=== PATIENT | male | born 1960 | race Caucasian/White ===

== ENCOUNTER 2019-08-16 00:08 | Day surgery (SDC) | payer OTHER, SELFPAY ==
[2019-08-11 11:16] VITALS: BMI 27.1
--- NOTE | 2019-08-14 14:44 | WPDANESEPP ---
Anes - Eval Pre Procedure Procedure: Operation Date: 08/16/19 07:30 Proposed Procedures p Screening Colonoscopy - Jossue Freeman MD Date/Time: 08/14/19 14:44 Pre Op Diagnosis: Neoplasm Screening, Hx of Colon Polyp Patient Data Age: 59 Gender: M Height: 5 ft 10 in Weight: 86 kg Allergies Allergy/AdvReac Type Severity Reaction Status Date / Time No Known Allergies Allergy Unverified 08/11/19 11:09 Home Medications Medication Instructions Recorded Confirmed Type alprazolam 0.5 mg tablet 0.5 mg PO BID PRN #60 tablet 07/23/19 08/11/19 Rx aspirin [Aspir-81] 81 mg PO DAILY 08/11/19 08/11/19 History atorvastatin 20 mg PO DAILY 08/11/19 08/11/19 History hydrocodone 10 mg-acetaminophen 1 tablet PO Q6H PRN #120 tablet 08/13/19 Rx 325 mg tablet Patient hx anesthesia problems: none Family hx anesthesia problems: none PMFSH Past Medical History Medical History (Updated 08/14/19 @ 14:44 by Marry Johnson CRNA) Chronic pain syndrome Chronic use of opiate drug for therapeutic purpose Hypercholesterolemia Overweight (BMI 25.0-29.9) PVD (peripheral vascular disease) with claudication Left leg Surgical History Surgical History (Updated 08/14/19 @ 14:44 by Marry Johnson CRNA) S/P laminectomy with spinal fusion Cervical & Lumbar S/P peripheral artery angioplasty with stent placement left leg Family History Family History (Updated 10/29/18 @ 09:31 by DOCTOR UNKNOWN) Sibling Family history of diabetes mellitus in first degree relative Diabetes mellitus Patient's brother is in good health Mother Carcinoma of colon Patient's mother is Father Family history unknown Family history of malignant neoplasm Patient's father is Social History Social History (Updated 08/14/19 @ 14:44 by Marry Johnson CRNA) Smoking status: Heavy tobacco smoker Alcohol intake: never Substance use: current Substance use type: opiates Exam Day of Procedure 08/14/19 14:44
[2019-08-16 06:44] VITALS: BP 113/74; PULSE 91; RESP 16; TEMP 37.1; O2SAT 97
[2019-08-16] MEDS: LACTATED RINGERS 1,000 ML 150 ML IV CONT (06:49)
--- NOTE | 2019-08-16 07:00 | WPDANESEFPP ---
Anes - Eval Final PreProcedure Day of Procedure 08/16/19 07:00 Patient weight: normal Heart: regular rate and rhythm Lungs: clear to auscultation Airway: Mallampati scale Neurological: alert and oriented Last oral intake: >/= 8 hours ASA classification: III Anesthetic plan: proceed Anesthesia type and monitoring: general GIVS and standard monitoring Informed Consent: The patient's anesthetic plan and its attendant risks and benefits were discussed with the patient/family/POA. Questions were solicited and answers provided to the satisfaction of the patient/family/POA.
--- NOTE | 2019-08-16 07:30 | WPDGICN ---
Assessment and Plan Additional Plan This is a 59-year-old white male patient seen in evaluation at the request of Dr. Kelley Arevalo. Patient presents for screening colonoscopy. Patient's family history is significant that his mother had colon cancer. Patient's last colonoscopy 6 years ago revealed several benign polyps. These were felt to be hyperplastic. Patient states that his current weight appetite bowel movements are normal. He denies any blood in his stools. He denies any weight loss. He denies any abdominal pain. Family history is significant mother had colon cancer. Past medical history is significant for peripheral vascular disease. Hypercholesterolemia. Medications include alprazolam. Atorvastatin. Hydrocortisone. He has no stated drug allergies. Physical exam reveals him to be alert. Vital signs stable. HEENT exam unremarkable. Lungs are clear to auscultation and percussion. Heart is without murmur or extra sounds. Abdominal exam bowel sounds are present soft nontender with no organomegaly. Digital external rectal exam normal. Impression 1. Family history of colon cancer. Plan is for screening colonoscopy. GI Consult Note Consult date/time: 08/16/19 07:30 HPI: Howard Maciel is a 59 year old male [facility] Past Medical History Medical History (Updated 08/15/19 @ 19:32 by Ector Garcia DO) Chronic pain syndrome Chronic use of opiate drug for therapeutic purpose Hypercholesterolemia Overweight (BMI 25.0-29.9) PVD (peripheral vascular disease) with claudication Left leg Surgical History Surgical History (Updated 08/15/19 @ 19:32 by Ector Garcia DO) S/P laminectomy with spinal fusion Cervical & Lumbar S/P peripheral artery angioplasty with stent placement left leg Family History Family History (Updated 10/29/18 @ 09:31 by DOCTOR UNKNOWN) Sibling Family history of diabetes mellitus in first degree relative Diabetes mellitus Patient's brother is in good health Mother Carcinoma of colon Patient's mother is Father Family history unknown Family history of malignant neoplasm Patient's father is Social History Social History (Updated 08/14/19 @ 14:44 by Marry Johnson CRNA) Smoking status: Heavy tobacco smoker Alcohol intake: never Substance use: current Substance use type: opiates Meds Home Medications and Allergies Home Medications Medication Instructions Recorded Confirmed Type alprazolam 0.5 mg tablet 0.5 mg PO BID PRN #60 tablet 07/23/19 08/11/19 Rx aspirin [Aspir-81] 81 mg PO DAILY 08/11/19 08/11/19 History atorvastatin 20 mg PO DAILY 08/11/19 08/11/19 History hydrocodone 10 mg-acetaminophen 1 tablet PO Q6H PRN #120 tablet 08/13/19 08/16/19 Rx 325 mg tablet Allergies Allergy/AdvReac Type Severity Reaction Status Date / Time No Known Allergies Allergy Unverified 08/16/19 06:43 Vital Signs Vital Signs - 24 hr 08/16/19 06:44 Temperature 37.1 C Pulse Rate 91 Respiratory Rate 16 Blood Pressure 113/74 Pulse Oximetry 97
[2019-08-16] MEDS: SIMETHICONE ORAL SUSPENSION 20 MG/0.3 ML 30 ML BOTTLE 0.6 ML IRRIGATION (07:40)
[2019-08-16 07:50] VITALS: BP 89/55; PULSE 70; RESP 14; O2SAT 98
[2019-08-16 08:00] VITALS: BP 117/72; PULSE 68; RESP 18; O2SAT 99
[2019-08-16 08:10] VITALS: BP 124/82; PULSE 64; RESP 15; O2SAT 98
[2019-08-16 08:20] VITALS: BP 119/74; PULSE 67; RESP 14; O2SAT 100
== END 2019-08-16 08:53 | disposition home or self-care (01) ==
PROVIDERS: PCP Internal Medicine; Visit Provider Internal Medicine Gastroenterology
PROC: 0DJD8ZZ Inspection of Lower Intestinal Tract, Via Natural or Artificial Opening Endoscopic (ICD-10-PCS; CPT 45378; principal; 2019-08-16 07:30)
DX: Z12.11 Encounter for screening for malignant neoplasm of colon (principal); K63.5 Polyp of colon; K64.8 Other hemorrhoids; Z80.0 Family history of malignant neoplasm of digestive organs; E78.00 Pure hypercholesterolemia, unspecified; G89.4 Chronic pain syndrome; I70.212 Atherosclerosis of native arteries of extremities with intermittent claudication, left leg; Z79.891 Long term (current) use of opiate analgesic; Z98.1 Arthrodesis status; Z95.820 Peripheral vascular angioplasty status with implants and grafts; Z79.82 Long term (current) use of aspirin; F17.210 Nicotine dependence, cigarettes, uncomplicated
CPT/HCPCS: 45385; J2704; J7120

== ENCOUNTER 2020-09-11 10:39 | Outpatient (CLI) | payer OTHER, SELFPAY ==
--- NOTE | ~2020-09-11 | CT_ITS ---
EXAMINATION: CT lung screening DATE: 09/11/2020 11:01 INDICATION: Personal history of nicotine dependence, prior smoker with 30 pack year history TECHNIQUE: Computed tomography (CT) of the chest was performed without intravenous contrast. The dose -length product (DLP) was 94.58 mGy-cm. Automated exposure control and iterative reconstruction techn [employer] were employed. COMPARISON: None FINDINGS: There are a few scattered 1 to 2 mm nodules in the lungs. The lungs are free of focal airsp augusta opacities. There is no pleural effusion or pneumothorax. No pathologically enlarged thoracic lymp h nodes are identified. The heart size is normal. Calcified coronary artery atherosclerosis is noted. There are partially imaged changes of anterior fusion in the lower cervical spine. IMPRESSION: 1. Lung-RADS category 2: Benign appearance or behavior. Continue annual screening with noncontrast lo w-dose chest CT in 12 months. Reviewed, dictated and finalized at location A. TTANCE CLERK IMPRESSION: 1. Lung-RADS category 2: Benign appearance or behavior. Continue annual screeni ng with noncontrast low-dose chest CT in 12 months.
== END 2020-09-11 10:40 | disposition home or self-care (01) ==
PROVIDERS: PCP Internal Medicine; Visit Provider Nurse Practitioner
DX: Z12.2 Encounter for screening for malignant neoplasm of respiratory organs (principal); Z87.891 Personal history of nicotine dependence
CPT/HCPCS: 71271

== ENCOUNTER 2022-03-27 10:53 | Outpatient (CLI) | payer OTHER, SELFPAY | END 2022-03-27 10:54 | disposition home or self-care (01) | LOC: ANHAUDIO 10:54 | PROVIDERS: PCP Internal Medicine; Visit Provider Internal Medicine | DX: H91.90 Unspecified hearing loss, unspecified ear (principal) | CPT/HCPCS: 92557; 92567 ==

== ENCOUNTER 2024-06-17 14:53 | Outpatient (CLI) | payer BC, SELFPAY ==
--- NOTE | ~2024-06-17 | US_ITS ---
EXAMINATION: US soft tissue upper back DATE: 06/17/2024 15:30 INDICATION: Benign lipomatous neoplasm with 2 chronic palpable areas at the right shoulder and mid up per back TECHNIQUE: Multiple grayscale and Doppler ultrasound images of the regions of concern at the top of t he right shoulder and at the mid upper back were obtained. COMPARISON: None FINDINGS: The first palpable abnormality corresponds to a 1.8 x 1.4 x 0.7 cm nonspecific hypoechoic mass which demonstrates a neck extending to a potential deeper component which is obscured by shadowing bone whi ch given the described location likely represents the clavicle. The second lesion is a very hypoechoi c 11 x 8 x 9 mm lesion situated in the superficial subdermal tissues at. The lesion extends to within 1.5 mm skin surface. No evident internal vascular flow or surrounding hyperemia on color Doppler. Th ere is prominent posterior acoustic enhancement consistent with a complex cystic lesion most likely s ebaceous/epidermoid cyst. IMPRESSION: 1. 1.8 x 1.4 x 0.7 cm hypoechoic mass corresponding to the lesion at the cephalad aspect of the right shoulder which appears to extend to a possible deeper component obscured by what is likely the clavi keyon. This most likely represents a lipoma however imaging appearance is nonspecific and would conside r further evaluation with either MRI or CT. 2. 11 x 8 x 9 mm superficial complex cystic lesion corresponding to the lesion at the mid upper back with location and appearance most consistent with a sebaceous/epidermoid cyst. Reviewed, dictated and finalized at location A. IAL SERVICE REPRESENTATIVE IMPRESSION: 1. 1.8 x 1.4 x 0.7 cm hypoechoic mass corresponding to the lesion at the cephal ad aspect of the right shoulder which appears to extend to a possible deeper co mponent obscured by what is likely the clavicle. This most likely represents a lipoma however imaging appearance is nonspecific and would consider further daniela luation with either MRI or CT. 2. 11 x 8 x 9 mm superficial complex cystic lesion corresponding to the lesion at the mid upper back with location and appearance most consistent with a sebac eous/epidermoid cyst.
--- NOTE | ~2024-06-17 | CT_ITS ---
EXAMINATION: CT lung screening DATE: 06/17/2024 15:30 INDICATION: Z87.891 - Personal history of nicotine dependence TECHNIQUE: Computed tomography (CT) of the chest was performed without intravenous contrast. Addition al 3D reconstructions utilizing coronal maximum intensity projection (MIP) were performed. Automated exposure control and iterative reconstruction technique were employed. The dose-length product was 87 .72 mGy-cm. COMPARISON: None FINDINGS: Small calcified nodule along the right minor fissure consistent with old granulomatous disease. Elong ated 7 x 3 mm triangular likely intrafissural lymph node along the left major fissure. No other suspi cious pulmonary nodules, pneumonia, pulmonary edema or pleural effusion. Heart size normal. Small of atherosclerotic coronary artery calcific location. No pericardial effusion. Thoracic aorta is normal in caliber. No pathologically enlarged thoracic lymphadenopathy. Mild thoracic spondylosis. IMPRESSION: 1. Lung-RADS category 2: Benign appearance or behavior. Continue annual screening with noncontrast lo w-dose chest CT in 12 months. Reviewed, dictated and finalized at location A. D PIPELINES SUPERVISOR IMPRESSION: 1. Lung-RADS category 2: Benign appearance or behavior. Continue annual screeni ng with noncontrast low-dose chest CT in 12 months.
== END 2024-06-17 14:54 | disposition home or self-care (01) ==
PROVIDERS: PCP Family Medicine; Visit Provider Family Medicine
DX: Z12.2 Encounter for screening for malignant neoplasm of respiratory organs (principal); Z87.891 Personal history of nicotine dependence; D17.9 Benign lipomatous neoplasm, unspecified
CPT/HCPCS: 71271; 76604

== ENCOUNTER 2025-02-22 00:34 | Day surgery (SDC) | payer BC, SELFPAY ==
[2025-02-10 10:35] VITALS: BMI 26.9
--- NOTE | 2025-02-15 16:21 | PC.NURSE ---
Spoke with _patient_ regarding medication _cilostazol. Patient verbalizes understanding that the last dose is to be taken on02/18/2025 and the Endoscopist will instruct them when to restart after the procedure.
--- OUTSIDE RECORDS SUMMARY | 2025-02-22 00:38 | XMS_ITS | Clinical Summary ---
Author Organization [facility] Address [address] [place] [address] Care Team Providers Care Video Engineer Name Role Phone Ector Garcia DO Primary Care Provider [phone] Allergies No known active allergies Medications HYDROcodone-acet aminophen (NORCO) 10-325 mg per tablet TAKE 1 TABLET BY MOUTH EVERY SIX HOURS NEEDED FOR PAIN; 09/17/2019 Active atorvastatin (LIPITOR) 20 mg tablet Take 20 mg by mouth daily 09/28/2019 Active ALPRAZolam (XANAX) 0.5 mg tablet TAKE ONE TABLET TWICE DAILY NEEDED 09/28/2019 Active gabapentin (NEURONTIN) 300 mg capsule Take 300 mg by mouth daily 09/16/2019 Active Active Problems Problem Noted Date Diagnosed Date HNP (herniated nucleus pulposus), lumbar 020 Assessment & Plan (03/15/2020 3:08 PM CDT): Assessment: Healed anterior lumbar fusion L4-5 Left L3-4 foraminal disc protrusion L5-S1 disc space narrowing and left foraminal narrowing Plan: Recommended treatment would be a left L5-S1 transforaminal epidural steroid injection and a follow-up call or visit. We will try this injection at the L5-S1 level to see if he gets any symptomatic benefit. He did not receive any benefit from the left L3-4 transforaminal epidural steroid injection. I would like to perform an injection at the L5-S1 level to determine if this is his pain generator. If he does not get any temporary or long-term relief he is to give the office a call and I can order an MRI of the lumbar spine with and without contrast and have him follow up for further evaluation and treatment. Assessment & Plan (10/06/2019 10:51 AM CDT): Assessment Healed fusion L4-5 with mild to moderate left L3-4 foraminal disc protrusion Plan Left L3-4 transforaminal epidural steroid injection and follow-up office visit help identify if that is the source of his symptoms and possibly provide relief Surgical History Surgery Date Site/Laterality Comments BACK SURGERY 07/07/1995 - 07/06/1996 BACK SURGERY 07/07/2008 - 07/06/2009 CERVICAL SPINE SURGERY 07/07/2006 - 07/06/2007 Medical History Medical History Date Comments Hypercholesteremia Anxiety Social History Tobacco Use Types Packs/Day Years Used Date Smoking Tobacco: Every Day Smokeless Tobacco: Never Personal Safety Answer Date Recorded Getting School Help Needed Not on file 09/19 Sex and Gender Information Value Date Recorded Sex Assigned at Not on file 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 Gender Identity Not on file Sexual Orientation Not on file Obstetrics History Last Filed Vital Signs Vital Sign Reading Time Taken Comments Blood Pressure 131/92 10/10/2011 8:01 AM CDT Pulse 82 10/10/2011 8:01 AM CDT Temperature - - Respiratory Rate - - Oxygen Saturation - - Inhaled Oxygen Concentration - - Weight 76.2 kg (168 lb) 03/15/2020 2:34 PM CDT Height 175.3 cm (5' 9) 03/15/2020 2:34 PM CDT Body Mass Index 24.81 03/15/2020 2:34 PM CDT Plan of Treatment Not on file Insurance Care Teams Video Engineer Relationship Specialty Start Date End Date Ector Garcia DO PCP - General Internal Medicine 10/06/19
--- OUTSIDE RECORDS SUMMARY | 2025-02-22 00:38 | XMS_ITS | Clinical Summary ---
Author Organization 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 Gender Identity Not on file Sexual Orientation Not on file Last Filed Vital Signs Vital Sign Reading Time Taken Comments Blood Pressure 148/96 05/04/2013 4:44 PM CDT Pulse - - Temperature - - Respiratory Rate - - Oxygen Saturation - - Inhaled Oxygen Concentration - - Weight 80.3 kg (177 lb) 05/04/2013 4:44 PM CDT Height 175.3 cm (5' 9) 03/02/2013 10:35 AM CDT Body Mass Index 26.14 03/02/2013 10:35 AM CDT Plan of Treatment Health Maintenance Due Date Last Done Comments Colorectal Cancer Screening Colonoscopy (10 Years) 1962 Annual Physical 1965 Hepatitis C 1980 Pneumococcal Vaccine: 50+ Ye ars (1 of 1 - PCV) 2012 Zoster Vaccines (1 of 2) 2012 DTaP, Tdap and Td Vaccines ( 2 - Td or Tdap) 07/07/2020 07/07/2010 COVID-19 Vaccine ( - 2023-2 5 season) 2024 RSV Immunization or 60+ Years (1 - 1-dose 75+ series) 2037 Meningococcal B Vaccine Aged Out No l onger eligible based on patient's age to complete this topic Meningococcal Vaccine Aged Out No josephine francisco eligible based on patient's age to complete this topic RSV Immunizations Under 20 Months Aged Out No longer eligible based on patient's age to complete this topic
--- OUTSIDE RECORDS SUMMARY | 2025-02-22 00:38 | XMS_ITS | Encounter Summary ---
Author Organization [facility] Address [address] [place] [address] Care Team Providers Care Principal Cloud Architect Name Role Phone Marvin Correia MD Primary Care Provider [phone] Reason for Visit * Reason Onset Date Comments Hematuria 02/04/2022 Spoke w/ Yoselyn at Dr. Villa[facility] Ex Medical Management 02/04/2022 Spoke w/ Dr. Amador Encounter Details Date Type Department Care Team (Late st Contact Info) Description 02/04/2022 Telephone [facility] Admitting [address] [place] [address] Leonela Herring, [facility] [address] [address] Hematuria (Spoke w/ Yoselyn at Dr. Villa's Ex); Medical Management (Spoke w/ Dr. 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 No / Unsure 02/04/2022 6:06 AM CDT documented as of this encounter Plan of Treatment Upcoming Encounters Date Type Department Care Team (Late st Contact Info) Description 02/03/2026 9:15 AM CDT Appointment [facility] Heart and Vascular Testing [place] [address] [facility] [address] [place] [address] [place] [address] [facility] [address] [place] [address] 02/03/2026 10:30 AM CDT Office Visit [facility] Heart and Vascular Surgery [address] [facility] [address] [address] [facility] [address] [place] [address] [place] [address] [facility] [address] [place] [address] documented as of this encounter Visit Diagnoses Not on filedocumented in this encounter Care Teams Principal Cloud Architect Relationship Specialty Start Date End Date Marvin Correia MD [address] [place] [address] PCP - General Family Practice 01/28/23 documented as of this encounter
--- OUTSIDE RECORDS SUMMARY | 2025-02-22 00:38 | XMS_ITS | Patient Health Record ---
Author Organization [facility] Address [address] [place], [place] [id number] Care Team Providers Care Marketing Assistant Retail Division Name Role Phone ELIJAH DIALLO Unavailable [phone] Zelalem Ashton Unavailable Unavailable Reason For Referral No Information Medications Medication SIG (Take, Route, Frequency, Duration) Notes Start Date End Date Status alprazolam 0.25 MG Oral Tablet [Xanax] ORAL alprazolam 0.25 MG Oral Tablet [Xanax]Original Medicationalprazolam 0.25 MG Oral Tablet [Xanax] *Reorder from [employer] for eRx and Interaction Alerts* 7 Active acetaminophen 325 MG / hydrocodone bitartrate 5 MG Oral Tablet ORAL acetaminophen 325 MG / hydrocodone bitartrate 5 MG Oral TabletOriginal Medicationacetaminophen 325 MG / hydrocodone bitartrate 5 MG Oral Tablet *Reorder from [employer] for eRx and Interaction Alerts* 7 Active Plan Of Treatment No Information Insurance Providers Payer Name Payer Address Payer Phone Subscriber Number Group Number Insured Name Patient Relationship to Insured Coverage Start Date Coverage End Date [facility] Acute Hospital [address] [place] [address] [id number] JENNY BARRETO Self - patient is the insured
--- OUTSIDE RECORDS SUMMARY | 2025-02-22 00:38 | XMS_ITS | Encounter Summary ---
Author Organization [facility] Address [address] [place] [address] Care Team Providers Care Yeast Culture Developer Name Role Phone Marvin Correia MD Primary Care Provider [phone] Encounter Details Date Type Department Care Team (Latest Contact Info) Description 06/06/1999 Inpatient Historical HIS PATIENT IN A BED Ariel Eaton MD [address] [facility] [address] [place], [place] [id number] Other and unspecified alcohol dependence, continuous drinking behavior (CMS/HCC) (Primary Dx) Social History Tobacco Use Types Packs/Day Years Used Date Smoking Tobacco: Never Assessed Sex and Gender Information Value Date Recorded Sex Assigned at Not on file 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 Gender Identity Not on file Sexual Orientation Not on file documented as of this encounter Plan of Treatment Upcoming Encounters Date Type Department Care Team (Late st Contact Info) Description 02/03/2026 9:15 AM CDT Appointment [facility] Heart and Vascular Testing [address] [place] [address] [place] [address] [facility] [address] [place] [address] 02/03/2026 10:30 AM CDT Office Visit [facility] [address] [facility] [address] [address] [facility] [address] [place] [address] [place] [address] [address] [facility] [address] [place] [address] documented as of this encounter Visit Diagnoses Diagnosis Other and unspecified alcohol dependence, continuous drinking behavior (CMS/HCC)- Primary Other and unspecified alcohol dependence, continuous drinking behavior documented in this encounter Care Teams Yeast Culture Developer Relationship Specialty Start Date End Date Marvin Correia MD [address] [place] [id number] PCP - General Family Practice 01/28/23 documented as of this encounter
--- OUTSIDE RECORDS SUMMARY | 2025-02-22 00:38 | XMS_ITS | Clinical Summary ---
Author Organization [facility] Address [address] [place] [address] Care Team Providers Care Second Ride Fare Collector Name Role Phone Marvin Correia MD Primary Care Provider [phone] Allergies No known active allergies Medications ALPRAZolam (XANAX) 0.5 mg tablet 0.5 mg nightly as needed for Insomnia. 8 Active aspirin (ECOTRIN EC) 81 mg Tablet, Delayed Release (E.C.) Take 81 mg by mouth daily. Active HYDROcodone-augusta taminophen (NORCO) 10-325 mg Tablet Take 1 Tablet by mouth every 6 hours as needed. 2 Active sildenafiL (VIAGRA) 50 mg tablet TAKE 1 TABLET BY MOUTH 30-45 MINUTES BEFORE INTERCOURSE NEEDED 2 Active atorvastatin (LIPITOR) 20 mg tablet Take 1 Tablet (20 mg) by mouth daily. 90 Tablet 3 2 Active cilostazoL (PLETAL) 100 mg Tablet Take 1 Tablet (100 mg) by mouth 2 times daily before meals. 190 Tablet 3 4 Active terbinafine HCL (LamISIL) 250 mg tablet Take 250 mg by mouth daily. Active Active Problems Patient Care Coordination No te Formatting of this note migh t be different from the original. Admissions Gate Attendant: Dr. Simpson Admissions Gate Attendant [facility] - [address] [place] [address] Vascular Admissions Gate Attendant - Dr. Kota Lawrence MD, [facility], [facility] - [address] [facility] Problem Noted Date Diagnosed Date Status post endovenous radio frequency ablation of saphenous vein 01/06/2023 Overview (01/06/2023): Added automatically from request for surgery [id number] Preop cardiovascular exam 01/06/2023 Overview (01/06/2023): Added automatically from request for surgery [id number] Chronic venous htn w inflammation of bilateral l ow extrm 01/06/2023 Overview (01/06/2023): Added automatically from request for surgery [id number] Tobacco abuse 12/27/2022 S/P femoral-femoral bypass surgery 05/23/2022 Gross hematuria 02/05/2022 PAD (peripheral artery disease) 07/12/2020 Overview (07/12/2020): Added automatically from request for surgery [id number] Peripheral vascular disease 08/14/2018 Hyperlipidemia 08/14/2018 Tobacco use 08/14/2018 Left leg claudication Acute cystitis with hematuria Hypertensive urgency Essential hypertension Normocytic anemia Bradypnea Anxiety Overweight with body mass in dex (BMI) of 26 to 26.9 in adult Resolved Problems Problem Noted Date Diagnosed Date Resolved Date Abnormal ankle brachial index (KENDRA) 06/16/2020 08/29/2022 Overview (06/16/2020): Added automatically from request for surgery [id number] Encounters Date Type Department Care Team Description 02/14/2025 Abstract [facility] Surgery [address] [facility] [address] [address] Marry Crow MD 02/11/2025 Telephone [facility] Surgery [address] [facility] [address] [address] Marry Crow MD Question 02/11/2025 Abstract [facility] Surgery [address] [facility] [address] [address] Marry Crow MD 02/10/2025 Telephone [facility] Surgery [address] [place] [address] [address] Marry Crow MD Needs Form Or Letter Filled Out (Consult form) 02/10/2025 Abstract [facility] Surgery [address] [place] [address] [address] Marry Crow MD 01/26/2025 Abstract [facility] Surgery [address] [place] [address] [address] Marry Crow MD 01/25/2025 11:30 AM CDT Office Visit [facility] Surgery [address] [place] [address] [address] Marry Crow MD PVD (peripheral vascular disease) (Primary Dx) 01/25/2025 10:03 AM CDT - 01/25/2025 11:59 PM CDT Hospital Encounter [facility] [place] [address] [facility] [address] [place] [address] Marry Crow MD Discharge Disposition: Home or Self Care 12/07/2024 External Device Data STL ABSTRACTION Provider, Abstract from Last 3 Months Family History Medical History Relation Name Comments Varicose Veins Neg Hx Relation Name Status Comments Father Mother Social History Tobacco Use Types Packs/Day Years Used Date Smoking Tobacco: Former Cigarettes Q uit: 11/28/2021 Smokeless Tobacco: Never Tobacco Cessation:Counseling Given: No Alcohol Use Standard Drinks/Week Comments Never 0 (1 standard drink = 0.6 oz pur e alcohol) Sex and Gender Information Value Date Recorded Sex Assigned at Not on file Legal 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 Gender Identity Not on file Sexual Orientation Not on file Last Filed Vital Signs Vital Sign Reading Time Taken Comments Blood Pressure 123/75 01/25/2025 11:14 AM CDT ri ght arm Pulse 88 01/25/2025 11:14 AM CDT Temperature 36.5 C (97.7 F) 01/25/2025 11:14 AM CDT Respiratory Rate 9 01/28/2023 1:45 PM CDT Oxygen Saturation 97% 01/25/2025 11:14 AM CDT Inhaled Oxygen Concentration - - Weight 83.9 kg (185 lb) 01/25/2025 11:14 AM CDT Height 177.8 cm (5' 10) 01/25/2025 11:14 AM CDT Body Mass Index 26.54 01/25/2025 11:14 AM CDT Plan of Treatment Upcoming Encounters Date Type Department Care Team (Late st Contact Info) Description 02/03/2026 9:15 AM CDT Appointment [facility] V[facility] Testing [address] [place] [address] [place] [address] [facility] [address] [place] [address] 02/03/2026 10:30 AM CDT Office Visit [facility] Surgery [address] [facility] 101 [address] [facility] 101 [place] [address] [place] [address] [facility] [address] [place] [address] Health Maintenance Due Date Last Done Comments COLORECTAL SCREENING 2007 Colorectal Cancer Screening 2007 FIT-DNA Q 3 years 2007 FIT/FOBT Q 1 year 2007 Flex Sig/CT Colonography Q 5 years 2007 ZOSTER VACCINE (1 of 2) 2012 RSV VACCINE (60+ or ) (1 - Risk 60-74 years 1-dose series) 2022 INFLUENZA VACCINE (#1) 2025 Pre-Diabetes and Diabetes Screening 02/04/202502/04 DTAP/TDAP/TD VACCINES (2 - Td or Tdap) 07/12/2025 Medical Devices Implanted Type Area Hook Tender Device Identifier Shelf Expiration Date Model / Serial / Lot Clip Ligating Horizon Red [id number] - Csc - [id number] Implanted:Qty: 1 on 02/04/2022 by Alvarez Lee MD at [facility] Clip Right: Groin [employer]LE[employer] INC 05/21/2026 [id number] / / [id number] Clip Ligating Horizon Med Ti [id number] - Csc - [id number] Implanted:Qty: 1 on 02/04/2022 by Alvarez Lee MD at [facility] Clip Right: Groin TELEFLEX- WECK CLOSURE SYS 05/21/2026 [id number] / / [id number] Closure Perclose Proglide [id number] - [id number] Implanted:Qty: 1 on 06/27/2020 by Christopher Simpson MD at [facility] Closure Device Right: Groin YOO- VASC DEVICE 03/06/2022 [id number] / / [id number] Angio-Seal Vip Closure Dev [id number] - [id number] Implanted:Qty: 1 on 07/17/2020 by Kota Lawrence MD at [facility] Closure Device N/A: Groin YOO [facility] [employer] 04/05/2021 [id number] / / [id number] Graft Vasc Propaten [id number] - [id number] Implanted:Qty: 1 on 02/04/2022 by Alvarez Lee MD at [facility] Graft Right: Groin [employer] 03/14/2025 [id number] / [id number] / Description:CHECKED BY RN 02/05/22 REQ#[id number] Hemostat Surg Snow 2x4in 2081 [id number] Implanted:Qty: 1 on 02/04/2022 by Alvarez Lee MD at [facility] Hemostatic Right: Groin J[employer]J- [employer] 09/04/20232081 / / [id number] Description:Bilateral Adh Bioglue 10ml [id number] - [id number] Implanted:Qty: 1 on 02/04/2022 by Alvarez Lee MD at [facility] Sealant Right: Groin ARTIVION (FKA CRYOLIFE) 08/25/2023 [id number] / / [id number] Description:CHECKED BY RN 02/05/22 Stent Viabahn Vbx [id number] - [id number] Implanted:Qty: 1 on 07/17/2020 by Kota Lawrence MD at [facility] Stent N/A: Iliac Artery [employer] 09/03/2022 [id number] / [id number] / Stent Abslt Pv [id number] - [id number] Implanted:Qty: 1 on 07/17/2020 by Kota Lawrence MD at [facility] Stent N/A: Arterial YOO- VASC DEVICE [id number] / / [id number] Procedures Procedure Name Priority Date/Time Associated Diagnosis Comments US ANKLE PRESSURE INDEX Routine 01/25/2025 10:31 AM CDT PAD (peripheral artery disease) HEMOGLOBIN A1C Routine 02/04/2022 10:36 PM CDT from Last 3 Months or Most Recently Relevant to Health Maintenance Results * US ANKLE PRESSURE INDEX (01/25/2025 10:31 AM CDT) Anatomical Region Laterality Modality Lower Extremity Ultrasound 01/25/2025 10:0 7 AM CDT Narrative 01/25/2025 2:54 PM CDT [facility] Testing KENDRA Arterial Physiologic Evaluation Patient: Howard Maciel Study ID: 1 Gender: M : 1960 Age: 64 Race: CAU Height 177.8cm Study Date: 01/25/2025 Weight: 77.1kg Access. #: [id number] *Referring Physician:Marry Hare Melanie *Ordering Physician:Marry HareForensic Examiner:Jose Francisco Mclean RVT, RVS Indications: Peripheral arterial disease. Study data: Study status: Routine. Procedure: A vascular evaluation was performed. Ankle and brachial pressures were indexed and Doppler waveforms obtained at the ankle. KENDRA. Ankle-brachial index. Birthdate: Patient birthdate: 1960. Age: Patient is 64year(s) old. Sex: gender: male. Height: 177.8cm. 70in. Weight: 77.1kg. : 170lb. Body mass index: BMI: 24.4kg/m^2. Body surface area: BSA: 1.96m^2. Study date: Study date: 01/25/2025. Study time: 10:07 AM. Location: Vascular laboratory. Patient status: Outpatient. Impressions 1. No evidence of arterial insufficiency at rest, involving the right lower extremity. 2. Moderate arterial insufficiency at rest, involving the left lower extremity. Arterial evaluation findings: Right: 1. Right KENDRA: 1.18. This is within the normal range at rest. 2. Continuous wave Doppler of the right leg vessels appears normally triphasic. 3. Right first digit pressure is within normal limits. 4. Digit photoplethysmography (PPG) demonstrates normal waveforms on the right. Left: 1. Left KENDRA: 0.64. This is consistent with moderate arterial insufficiency at rest. 2. Continuous wave Doppler of the left leg vessels is abnormal. 3. Left first digit pressure is below normal limits. Tables: Brachial pressures: +--------+ + + + ! !Right !Left !Max ! +--------+ + + + !Systolic!R(sys): 147mm Hg!L(sys): 137mm Hg!Max: 147mm Hg! +--------+ + + + Ankle brachial indices: +----+----+-------+-----+----+-----+--------+---+----+------+-----+----+-----+ !R PT!R DP!R Toe !R PT !R DP!R Toe!Brachial!L !L DP!L Toe !L PT !L DP!L Toe! ! ! ! !index!inde!index! !PT ! ! !index!inde!index! ! ! ! ! !x ! ! ! ! ! ! !x ! ! +----+----+-------+-----+----+-----+--------+---+----+------+-----+----+-----+ !162 !174 !124mm !1.10 !1.18!0.84 !147mm Hg!88 !94 !55mm !0.60 !0.64!0.37 ! ! ! !Hg ! ! ! ! ! ! !Hg ! ! ! ! +----+----+-------+-----+----+-----+--------+---+----+------+-----+----+-----+ *Pressures are expressed in mm Hg Prepared and Electronically Authenticated Best Gonsales [id number]:54:09 Procedure Note Best Gonsales MD - 01/25/2025 [facility] KENDRA Arterial Physiologic Evaluation Patient: Howard Maciel Study ID: 1 Gender: M : 1960 Age: 64 Race: DONI Height 177.8cm Study Date: 01/25/2025 Weight: 77.1kg Access. #: [id number] *Referring Physician:Marry Hare Melanie *Ordering Physician:Marry Hare *Forensic Examiner:* Bettye Mclean RVT, MATIASS Indications: Peripheral arterial disease. Study data: Study status: Routine. Procedure: A vascular evaluationwas performed. Ankle and brachial pressures were indexed and Dopplerwaveforms obtained at the ankle. KENDRA. Ankle-brachial index. Birthdate:Patient birthdate: 1960. Age: Patient is 64year(s) old. Sex: Birthgender: male. Height: 177.8cm. 70in. Weight: 77.1kg. : 170lb. Body massindex: BMI: 24.4kg/m^2. Body surface area: BSA: 1.96m^2. Study date:Study date: 01/25/2025. Study time: 10:07 AM. Location: Vascular laboratory. Patient status: Outpatient. Impressions 1. No evidence of arterial insufficiency at rest, involving the rightlower extremity. 2. Moderate arterial insufficiency at rest, involving the left lower extremity. Arterial evaluation findings: Right: 1. Right KENDRA: 1.18. This is within the normal range at rest. 2. Continuous wave Doppler of the right leg vessels appears normally triphasic. 3. Right first digit pressure is within normal limits. 4. Digit photoplethysmography (PPG) demonstrates normal waveforms on the right. Left: 1. Left KENDRA: 0.64. This is consistent with moderate arterial insufficiencyat rest. 2. Continuous wave Doppler of the left leg vessels is abnormal. 3. Left first digit pressure is below normal limits. Tables: Brachial pressures: +--------+ + + + ! !Right !Left !Max ! +--------+ + + + !Systolic!R(sys): 147mm Hg!L(sys): 137mm Hg!Max: 147mm Hg! +--------+ + + + Ankle brachial indices: +----+----+-------+-----+----+-----+--------+---+----+------+-----+----+-----+ !R PT!R DP!R Toe !R PT !R DP!R Toe!Brachial!L !L DP!L Toe !L PT !L DP!LToe! ! ! ! !index!inde!index! !PT ! !!index!inde!index! ! ! ! ! !x ! ! ! ! ! ! !x !! +----+----+-------+-----+----+-----+--------+---+----+------+-----+----+-----+ !162 !174 !124mm !1.10 !1.18!0.84 !147mm Hg!88 !94 !55mm !0.60!0.64!0.37 ! ! ! !Hg ! ! ! ! ! ! !Hg ! ! !! +----+----+-------+-----+----+-----+--------+---+----+------+-----+----+-----+ *Pressures are expressed in mm Hg Prepared and Electronically Authenticated Best Gonsales [id number]:54:09 Marry Crow MD ORDERABLES Final Resul t * (ABNORMAL) HEMOGLOBIN A1C (02/04/2022 10:36 PM CDT) HEMOGLOBIN A1C 5.8(H) <=5.6 % 02/05/2022 12:10 AM CDT [facility] EST. AVG GLUCOSE, A1C 120 mg/dL 02/05/2022 12:10 AM CDT [facility] [employer] [facility] Blood Venipuncture / Unknown 02/04/2022 10:36 PM CDT 02/04/2022 10:46 PM CDT Narrative [facility] [employer] [facility] - 02/05/2022 12:10 AM CDT HGB A1C INTERPRETATION NORMAL: <5.7% PRE-DIABETES: 5.7 - 6.4% DIABETES: 6.5% OR GREATER Rick Han DO CHEMISTRY ORDERABLE S Final Result [facility]# [id number] [place] [place] [address] from Last 3 Months or Most Recently Relevant to Health Maintenance Insurance RX [employer] RX Member Subscriber Plan / Payer ( fective 2020-Present) Name:Howard Maciel Relation to Subscriber:Self Name:Howard Maciel Payer ID:Not on file Group ID:[id number] Type:RX Commercial Address: [facility] MEDICARE Advance Directives For more information, please contact: [phone] * Full Code (Latest Code Status on File) Date Activated Date Inactivated Comments 02/04/2022 11:40 AM 02/06/2022 1:11 PM Care Teams Second Ride Fare Collector Relationship Specialty Start Date End Date Marvin Correia MD [address] [place] [address] PCP - General Family Practice 01/28/23
--- OUTSIDE RECORDS SUMMARY | 2025-02-22 00:38 | XMS_ITS | Encounter Summary ---
Author Organization [facility] Address [address] [place] [address] Care Team Providers Care Journeyman Powerhouse Operator Name Role Phone Marvin Correia MD Primary Care Provider [phone] Encounter Details Date Type Department Care Team (Latest Contact Info) Description 06/11/1999 Outpatient Historical HIS CD PARTIAL Ariel Acuna MD [address] [facility] [address] [place], [place] [id number] Other, mixed, or unspecified nondependent drug abuse, unspecified (Primary Dx) Social History Tobacco Use Types Packs/Day Years Used Date Smoking Tobacco: Never Assessed Sex and Gender Information Value Date Recorded Sex Assigned at Not on file 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 [address] [facility] [address] [place] [address] [place] [address] [address] [facility] [address] [place] [address] documented as of this encounter Visit Diagnoses Diagnosis Other, mixed, or unspecified nondependent drug abuse, unspecified- Primary documented in this encounter Care Teams Journeyman Powerhouse Operator Relationship Specialty Start Date End Date Marvin Correia MD [address] [place] [address] PCP - General Family Practice 01/28/23 documented as of this encounter
--- OUTSIDE RECORDS SUMMARY | 2025-02-22 00:38 | XMS_ITS | Continuity of Care Document ---
Author Organization [facility] Address [address] [employer] [address] [place] [address] Phone Care Team Providers Care Flight Readiness Technician Name Role Phone Danny Aj MD Unavailable Unavailable Allergies, Adverse Reactions, Alerts Substance Reaction Status Criticality No Known Allergies Active No Inform ation Medications Medication Instructions Dosage Effective Dates (start - stop) Status Comments Ogden 10 mg-325 mg tablet take 1 by Oral route every 4 - 6 hours as needed 1 - Active PRN for pain, avoid driving or operate machines, max 4/24 hours Xanax 0.5 mg tablet take 1 tablet (0.5MG) by oral route every 6 hours 0.5 MG - Active Procedures Procedure Date OFFICE/OUTPATIENT VISIT, EST OFFICE/OUTPATIENT VISIT, EST OFFICE/OUTPATIENT VISIT, EST PREV VISIT, EST, AGE 40-64 OFFICE/OUTPATIENT VISIT, EST Advance Directives Directive Yes / No Effective Date File Name No Information Encounters Encounter Description Practice Location Reason(s) For Visit Diagnoses Date Provider Providers Copied on Encounter [facility], [address] [place] [id number], [place] tel:[phone] [facility] No Information 3 Jean Marie Delgado. [address], [facility] [place], [address] , [place]. tel:[phone] Referring Provider: Danny Aj, [address] [facility] [address], [place], [place], [address]. tel:[phone] OFFICE/OUTPA TIENT VISIT, EST [facility], [address] [place], [place], [address], [place] tel:[phone] [facility] Medicine back pain (chief complaint) Lumbago 3 Jean Marie Delgado. [address], [address], [place], [place], [address] , [place]. tel:[phone] Referring Provider: Danny Aj, [address], [place], [place], [address]. tel:[phone] OFFICE/OUTPA TIENT VISIT, [facility], [address] [place], [place], [address], [place] tel:[phone] [facility] Medicine back pain (chief complaint) anxiety (chief complaint) HTN (chief complaint) Dietary surveillance and counselingLumbagoGe neralized anxiety disorderHypertensio n, Unspecified 3 Jean Marie Delgado. [address], [address], [place], [place], [address] , [place]. tel:[phone] Referring Provider: Danny Aj, [address], [place], [place], [address]. tel:[phone] OFFICE/OUTPA TIENT VISIT, [facility], [address] [place], [place], [address], [place] tel:[phone] [facility] back pain (chief complaint) Anxiety (chief complaint) ED (chief complaint) LumbagoHyperglycemi aGeneralized anxiety disorder 3 Jean Marie Delgado. [address], [address], [place], [place], [address] , [place]. tel:[phone] Referring Provider: Danny Aj, [address], [place], [place], [address]. tel:[phone] PREV VISIT, EST, AGE 40-64 [facility], [address] [place], [place], [address], [place] tel:[phone] [facility] Medicine PHysical (chief complaint) Routine Medical ExamLumbagoGenerali zed anxiety disorderOther and unspecified hyperlipidemiaRouti ne Medical Exam 2 Jean Marie Delgado. [address], [address], [place], [place], [address] , [place]. tel:[phone] Referring Provider: Danny Aj, [address], [place], [place], [address]. tel:[phone] [facility], [address] [place], [place], [address], [place] tel:[phone] [facility] back pain (chief complaint) anxiety (chief complaint) LumbagoGeneralized anxiety disorder 2 Jean Marie Delgado. [address], [facility] [address], [place], [place], [address] , [place]. tel:[phone] Family History Family Member Type Diagnosis Age At Onset Brother Problem (finding) Alive and well Mother Problem (finding) Cancer, colon Payers Payer name Insurance type Covered libertarian ID Authoriza tion(s) No Information Social History Type Description Quantity Date Captured Comments Sex Male Smoking Status No Information Chief Complaint And Reason For Visit No Information Plan Of Treatment Date Type Action Status Goal Tobacco cessation counseling completed Goal Tobacco cessation counseling completed Goal Tobacco cessation counseling completed Goal Tobacco cessation counseling completed Referral Ordered: Referral: Pain Management. Evaluate and treat. ordered History Of Present Illness Encounter Date Complaint History Of Prese nt Illness No Information Instructions Date Instruction Additional Infor mation back exercise Related to Lumba go Decrease caloric intake Related to Dietary surveillance counseling Dietary counseling Related to Di etary surveillance counseling education about post ure and also adequate rest Related to Lumbago education about exer cise and stretching Related to Lumbago Assessments Type Assessment Date No Information
[2025-02-22 10:48] VITALS: BP 124/83; PULSE 83; RESP 18; TEMP 36.1; O2SAT 98
[2025-02-22] MEDS: LACTATED RINGERS 1,000 ML 150 ML IV CONT (10:55)
--- NOTE | 2025-02-22 11:27 | P.PNAN_ITS ---
Anes - Initial Pre Proc Eval Procedure: Operation Date: 02/22/25 13:00 Proposed Procedures p Screening Colonoscopy - Bryan Pugh DO Date/Time: 02/22/25 11:27 Surgeon: Bryan Pugh DO Pre Op Diagnosis: Screening for malignant neoplasm of colon Patient Data Age: 64 Gender: M Height: 1.78 m Weight: 81.6 kg Last Vital Signs Temp 36.1 C L 02/22/25 10:48 Pulse 83 02/22/25 10:48 Resp 18 02/22/25 10:48 BP 124/83 02/22/25 10:48 Pulse Ox 98 02/22/25 10:48 O2 Del Method Room Air 02/22/25 10:48 Allergies Allergy/AdvReac Type Severity Reaction Status Date / Time No Known Allergies Allergy Verified 02/22/25 10:45 Home Medications ?Medication ?Instructions ?Recorded ?Confirmed ?Type aspirin 81 mg tablet,delayed 81 mg PO DAILY #90 tabs 1 02/22/25 Rx release cilostazol 100 mg tablet 100 mg PO BID 05/26/2402/22 History atorvastatin 20 mg tablet 20 mg PO DAILY #90 tabs /11/2802/22/25 Rx terbinafine HCl 250 mg tablet 250 mg PO DAILY #84 tabs 02/07/25 02/22/25 Rx sildenafil 50 mg tablet 50 mg PO DAILY PRN sexual ac tivity 02/09/25 02/10/25 Rx #10 tabs alprazolam 0.5 mg tablet (Xanax) 0.5 mg PO BID PRN anx iety #60 tabs 02/21/25 02/22/25 Rx hydrocodone 10 mg-acetaminophen 1 tablet PO Q6H PRN pa in #120 tabs 02/21/25 02/22/25 Rx 325 mg tablet Patient hx anesthesia problems: none Family hx anesthesia problems: none Results Review: All pre-operative results and documents have been reviewed as part of the pre- operative evaluation. [facility] Past Medical History Medical History (Updated 02/21/25 @ 11:53 by Hong Lu DO) Chronic pain DDD (degenerative disc disease), cervical Lumbar degenerative disc disease Venous reflux Chronic use of opiate drug for therapeutic purpose Chronic pain syndrome PVD (peripheral vascular disease) with claudication Left leg Hypercholesterolemia Overweight (BMI 25.0-29.9) Surgical History Surgical History S/P laminectomy with spinal fusion Cervical & Lumbar S/P peripheral artery angioplasty with stent placement left leg Family History Family History Sibling Family history of diabetes mellitus in first degree relative Diabetes mellitus Patient's brother is in good health Mother Carcinoma of colon Patient's mother is Father Family history unknown Family history of malignant neoplasm Patient's father is Social History Social History Smoking packs per day: 1 Smoking cigarettes per day: 20.0 Years smoked: 30 Smoking pack-years: 30.00 Smoking status: Former smoker Tobacco type: cigarettes Additional smoking assessment comments: 2-3 ciagarettes a week Alcohol intake: never Substance use: current Substance use type: does not use Lack of Transportation: No Lack of Food: Never True Current Housing: I Have Housing Concerned About Future Housing: No Difficulty Paying Gas/Electric Bills: No Difficulty Paying for Meds: No Currently Unemployed: No Education: High School Diploma/GED Difficulty w/ Childcare or Family Care: No Living arrangements: with family Spiritual care concerns: No Anes - Eval Final PreProcedure Day of Procedure 02/22/25 11:27 Patient weight: overweight Heart: regular rate and rhythm Lungs: clear to auscultation Airway: Mallampati scale class II Neurological: alert and oriented Last oral intake: >/= 8 hours ASA classification: III Emergent: no Anesthetic plan: proceed Anesthesia type and monitoring: general GIVS and standard monitoring Results Review: All pre-operative results and documents have been reviewed as part of the pre- operative evaluation. Informed Consent: The patient's anesthetic plan and its attendant risks and benefits were discussed with the patient/family/POA. Questions were solicited and answers provided to the satisfaction of the patient/family/POA.
--- NOTE | 2025-02-22 12:17 | PM.IMHP ---
H&P: HPI History of Present Illness Date/Time: 02/22/25 12:17 Chief Complaint: family history of colon cancer, history of polyps Narrative: this is a 64-year-old man who presents for colonoscopy. His last colonoscopy was 5 years ago and 2 polyps were removed at that time. He has a family history of colon cancer in his mother. He denies any hematochezia or melena. Review of Systems Review of Systems: All systems reviewed & are unremarkable except as noted in HPI and below Constitutional: Constitutional: Denies chills, Denies fever(s), Denies headache(s) and Denies weight loss Eyes: Eyes: Denies change in vision ENT: Denies dizziness, Denies headache(s), Denies neck mass and Denies throat swelling Cardiovascular: Cardiovascular: Denies chest pain, Denies lightheadedness and Denies dyspnea Respiratory: Respiratory: Denies cough, Denies dyspnea and Denies wheezing Gastrointestinal: Gastrointestinal: Denies abdominal pain, Denies change in bowel habits, Denies nausea and Denies vomiting Genitourinary: Genitourinary: Denies hematuria and Denies dysuria Musculoskeletal: Musculoskeletal: Reports as per HPI Integumentary/Breasts: Skin/Breast: Reports as per HPI Neurologic: Denies dizziness and Denies headache(s) Allergic/Immunologic: Allergic/Immunologic: Denies throat swelling and Denies wheezing [facility] Past Medical History Medical History (Updated 02/22/25 @ 12:18 by Bryan Pugh DO) Chronic pain DDD (degenerative disc disease), cervical Lumbar degenerative disc disease Venous reflux Chronic use of opiate drug for therapeutic purpose Chronic pain syndrome PVD (peripheral vascular disease) with claudication Left leg Hypercholesterolemia Overweight (BMI 25.0-29.9) Surgical History Surgical History S/P laminectomy with spinal fusion Cervical & Lumbar S/P peripheral artery angioplasty with stent placement left leg Family History Family History Sibling Family history of diabetes mellitus in first degree relative Diabetes mellitus Patient's brother is in good health Mother Carcinoma of colon Patient's mother is Father Family history unknown Family history of malignant neoplasm Patient's father is Social History Social History Smoking packs per day: 1 Smoking cigarettes per day: 20.0 Years smoked: 30 Smoking pack-years: 30.00 Smoking status: Former smoker Tobacco type: cigarettes Additional smoking assessment comments: 2-3 ciagarettes a week Alcohol intake: never Substance use: current Substance use type: does not use Lack of Transportation: No Lack of Food: Never True Current Housing: I Have Housing Concerned About Future Housing: No Difficulty Paying Gas/Electric Bills: No Difficulty Paying for Meds: No Currently Unemployed: No Education: High School Diploma/GED Difficulty w/ Childcare or Family Care: No Living arrangements: with family Spiritual care concerns: No Meds Home Medications and Allergies Home Medications ?Medication ?Instructions ?Recorded ?Confirmed ?Type aspirin 81 mg tablet,delayed 81 mg PO DAILY #90 tabs 04/29/22 02/22/25 Rx release cilostazol 100 mg tablet 100 mg PO BID 05/26/24 02/22/25 History atorvastatin 20 mg tablet 20 mg PO DAILY #90 tabs 08/31/24 02/22/25 Rx terbinafine HCl 250 mg tablet 250 mg PO DAILY #84 tabs 02/07/25 02/22/25 Rx sildenafil 50 mg tablet 50 mg PO DAILY PRN sexual activity 02/09/25 02/10/25 Rx #10 tabs alprazolam 0.5 mg tablet (Xanax) 0.5 mg PO BID PRN anxiety #60 tabs 02/21/25 02/22/25 Rx hydrocodone 10 mg-acetaminophen 1 tablet PO Q6H PRN pain #120 tabs 02/21/25 02/22/25 Rx 325 mg tablet Allergies Allergy/AdvReac Type Severity Reaction Status Date / Time No Known Allergies Allergy Verified 02/22/25 10:45 Vital Signs Vital Signs - 24 hr 02/22/25 10:48 Temperature 97 F L Pulse Rate 83 Respiratory Rate 18 Blood Pressure 124/83 Pulse Oximetry 98 Oxygen Delivery Room Air Exam Const: General: no acute distress and alert Orientation/consciousness: patient oriented x3 HENMT: Head: normocephalic and atraumatic Ears: hearing grossly normal bilaterally Face/Nose/Sinus: Normal nares present Mouth: Yes Normal oral and palatal mucosa present Eyes: Periorbital: periorbital findings normal Sclera: sclerae normal EOM: EOMs intact bilaterally Neck: Neck: normal visual inspection, no lymphadenopathy and trachea midline Chest: Chest palpation & inspection: normal inspection of the chest Resp: Effort & Inspection: normal respiratory effort Auscultation: clear to auscultation bilaterally Cardio: Jugular venous distension: no JVD Rate: regular rate Rhythm: regular rhythm Heart sounds: S1 normal heart sound present and S2 normal heart sound present Peripheral pulses: Peripheral pulses 2+ throughout GI: Inspection: normal to inspection GI Palp: Yes Soft to palpation, No Tenderness to palpation present (GI), No Guarding due to palpation present (GI) and No Rebound tenderness present Percussion: Yes normal to percussion Auscultation: normal bowel sounds : General: Yes no CVA tenderness Back/Spine/Pelvis: Back: no CVA tenderness Neuro: General: patient oriented x3, no focal motor deficits and CN's II-XI intact bilaterally Cognition (Neuro): normal cognition Speech: normal speech Motor exam (neuro): 5/5 motor strength present throughout Extrem: General: capillary refill normal and no clubbing, cyanosis or edema Assessment and Plan Assessment and plan (1) Hx of colonic polyps: Code(s): Z86.0100 - Personal history of colon polyps, unspecified Status: Acute Assessment and Plan: I have recommended colonoscopy. I have discussed the procedure, risks, benefits, and alternatives. Questions were answered. Patient is agreeable to proceed. (2) Family hx of colon cancer: Code(s): Z80.0 - Family history of malignant neoplasm of digestive organs Status: Acute
--- NOTE | 2025-02-22 12:49 | S_PTH ---
PATIENT: Howard Maciel LOC: [facility] U#:[id number] AGE/SX: 64/M ROOM: RE02/22/[address]: Bryan Pugh DO : 1960 BED: DIS: 02/22/2025 SPEC #: [id number] RECD: 02/22/25 13:04 STATUS: YARELI BRENNAN #: [id number] ANJANA: 02/22/25 12:[address]: Bryan Pugh DEPT: [facility] Surgical RECD BY: Patrick Ramsey ENTERED: 02/22/25 13:05 SP TYPE: Surgical OTHR DR: Marvin Correia MD Tissues: A - Colon Polypectomy B - Colon Polypectomy C - Colon Polypectomy D - Colon Polypectomy Procedures: Hematoxylin and Eosin Stain Gross and Microscopic Level 4
[2025-02-22 12:51] VITALS: BP 114/74; PULSE 63; RESP 15; O2SAT 97
[2025-02-22 13:01] VITALS: BP 119/73; PULSE 69; RESP 17; O2SAT 99
[2025-02-22 13:11] VITALS: BP 133/74; PULSE 60; RESP 22; O2SAT 100
== END 2025-02-22 13:22 | disposition home or self-care (01) ==
PROVIDERS: PCP Family Medicine; Visit Provider Surgery
PROC: 0DJD8ZZ Inspection of Lower Intestinal Tract, Via Natural or Artificial Opening Endoscopic (ICD-10-PCS; CPT 45378; principal; 2025-02-22 13:00)
DX: Z12.11 Encounter for screening for malignant neoplasm of colon (principal); D12.5 Benign neoplasm of sigmoid colon; D12.2 Benign neoplasm of ascending colon; D12.3 Benign neoplasm of transverse colon; K62.1 Rectal polyp; E78.00 Pure hypercholesterolemia, unspecified; K21.9 Gastro-esophageal reflux disease without esophagitis; M50.30 Other cervical disc degeneration, unspecified cervical region; M51.369 Other intervertebral disc degeneration, lumbar region without mention of lumbar back pain or lower extremity pain; G89.4 Chronic pain syndrome; I73.89 Other specified peripheral vascular diseases; F17.210 Nicotine dependence, cigarettes, uncomplicated; Z79.891 Long term (current) use of opiate analgesic; Z79.82 Long term (current) use of aspirin; Z98.1 Arthrodesis status; Z95.820 Peripheral vascular angioplasty status with implants and grafts; Z80.0 Family history of malignant neoplasm of digestive organs
CPT/HCPCS: 45385; 88305; J2003; J2704; J7120

== ENCOUNTER 2025-06-20 11:34 | Outpatient (CLI) | payer BC, SELFPAY ==
--- NOTE | ~2025-06-20 | CT_ITS ---
EXAMINATION:CT lung screening DATE: 06/20/2025 11:54 INDICATION: Screening TECHNIQUE: Computed tomography (CT) of the chest was performed without intravenous contrast. The dose-length product (DLP) was 136.01 mGy-cm. COMPARISON: None. FINDINGS: Small left-sided radiographically benign nodule stable. No new nodules or masses. Heart and great vessels stable in size. Degenerative changes throughout the bones. No acute process seen in the visualized portions of the upper abdomen or extrathoracic soft tissues. Coronary artery calcifications noted. IMPRESSION: Stable chest CT. Lung RADS 2. Recommend correlation with follow-up low-dose lung cancer screening chest CT in 12 months. Reviewed, dictated and finalized at location A. [employer]
== END 2025-06-20 11:35 | disposition home or self-care (01) ==
PROVIDERS: PCP Family Medicine; Visit Provider Family Medicine
DX: Z12.2 Encounter for screening for malignant neoplasm of respiratory organs (principal); I25.10 Atherosclerotic heart disease of native coronary artery without angina pectoris; Z87.891 Personal history of nicotine dependence
CPT/HCPCS: 71271